=== PATIENT | male | born 1985 | race Caucasian/White ===

== ENCOUNTER 2016-12-12 15:24 | Emergency (ER) | payer OTHER, MEDICAID ==
[~2016-12-12] VITALS: Ht 170.2 cm; Wt 76.0 kg
[2016-12-12 16:15] VITALS: BP 128/84
== END 2016-12-12 18:33 | disposition left against medical advice (07) ==
LOC: ER 18:14
DX: R51 Headache (principal); R42 Dizziness and giddiness; H53.8 Other visual disturbances; Z53.21 Procedure and treatment not carried out due to patient leaving prior to being seen by health care provider

== ENCOUNTER 2018-03-07 03:08 | Emergency (ER) | payer MEDICAID, OTHER ==
[~2018-03-07] VITALS: Ht 165.1 cm; Wt 66.8 kg
[2018-03-07 03:35] VITALS: BP 118/77
== END 2018-03-07 04:05 | disposition left against medical advice (07) ==
LOC: ER 03:08
DX: R10.9 Unspecified abdominal pain (principal); Z53.21 Procedure and treatment not carried out due to patient leaving prior to being seen by health care provider

== ENCOUNTER 2021-03-17 16:51 | Emergency (ER) | payer MEDICAID ==
[~2021-03-17] VITALS: Ht 162.6 cm; Wt 63.0 kg
[~2021-03-17 16:51] MED LIST: ACET-2708 MT
[2021-03-17 17:05] VITALS: BP 139/88
== END 2021-03-17 18:55 | disposition left against medical advice (07) ==
LOC: ER 16:51
DX: Z53.21 Procedure and treatment not carried out due to patient leaving prior to being seen by health care provider (principal)

== ENCOUNTER 2021-03-21 20:28 | Emergency (ER) | payer MEDICAID | END 2021-03-21 22:59 | disposition left against medical advice (07) | LOC: ER 22:54 | DX: Z53.21 Procedure and treatment not carried out due to patient leaving prior to being seen by health care provider (principal) ==

== ENCOUNTER 2021-03-21 23:15 | Emergency (ER) | payer MEDICAID ==
[~2021-03-21] VITALS: Ht 167.6 cm; Wt 59.0 kg
[2021-03-22] MEDS ORDERED: IBUPROFEN 600MG TABLET PO ONE (01:15)
[2021-03-22 01:40] VITALS: BP 135/86
[2021-03-22 01:52] LABS: CLARITY URINE CLEAR (CLEAR); COLOR URINE YELLOW (YELLOW); KETONES URINE NEGATIVE (NEGATIVE); LEUKOCYTE ESTERASE URINE NEGATIVE (NEGATIVE); NITRITE URINE NEGATIVE (NEGATIVE); OCCULT BLOOD URINE NEGATIVE (NEGATIVE); PROTEIN URINE NEGATIVE (NEGATIVE); SPECIFIC GRAVITY URINE 1.029 (1.005-1.030)
== END 2021-03-22 03:02 | disposition home or self-care (01) ==
LOC: ER 23:15
DX: R30.0 Dysuria (principal); K62.89 Other specified diseases of anus and rectum
CPT/HCPCS: 81003; 99283

== ENCOUNTER 2021-04-10 12:24 | Emergency (ER) | payer MEDICAID ==
[~2021-04-10] VITALS: Ht 165.1 cm; Wt 65.0 kg
[2021-04-10 12:48] VITALS: BP 133/82
== END 2021-04-10 15:57 | disposition left against medical advice (07) ==
LOC: ER 12:24
DX: K59.00 Constipation, unspecified (principal); Z53.21 Procedure and treatment not carried out due to patient leaving prior to being seen by health care provider

== ENCOUNTER 2021-05-08 12:21 | Emergency (ER) | payer SELFPAY ==
[~2021-05-08] VITALS: Ht 165.1 cm; Wt 68.0 kg
[2021-05-08 14:36] LABS: BASOPHILS % 0.2 % (0.0-2.0); EOSINOPHILS % 0.4 % (0.0-5.0); HEMATOCRIT. 44.9 % (42.0-52.0); HEMOGLOBIN. 15.7 g/dL (14.0-18.0); LYMPHOCYTES % 22.7 % (20.0-50.0); MEAN CORPUSCULAR HEMOGLOBIN 30.9 pg (28.0-32.0); MEAN CORPUSCULAR VOLUME 88.4 fL (80.0-94.0); MEAN PLATELET VOLUME 8.4 fl (7.4-10.4); MONOCYTES % 5.5 % (2.0-8.0); NEUTROPHILS % 71.2 % (40.0-76.0); PLATELET 234 x1000/uL (130-400); RED BLOOD CELL COUNT 5.07 mill/uL (4.7-6.1); RED CELL DISTRIBUTION WIDTH 13.5 % (11.6-14.6)
[2021-05-08 14:37] LABS: CLARITY URINE CLEAR (CLEAR); COLOR URINE YELLOW (YELLOW); KETONES URINE NEGATIVE (NEGATIVE); LEUKOCYTE ESTERASE URINE NEGATIVE (NEGATIVE); NITRITE URINE NEGATIVE (NEGATIVE); OCCULT BLOOD URINE NEGATIVE (NEGATIVE); PH URINE 6.5 (4.5-8.0); PROTEIN URINE NEGATIVE (NEGATIVE); SPECIFIC GRAVITY URINE 1.029 (1.005-1.030)
[2021-05-08 15:30] VITALS: BP 131/86
[2021-05-08 16:01] LABS: CHLORIDE 109 mEq/L (98-107)
== END 2021-05-08 16:37 | disposition left against medical advice (07) ==
LOC: ER 12:21
DX: R10.30 Lower abdominal pain, unspecified (principal); K59.00 Constipation, unspecified
CPT/HCPCS: 36415; 80053; 81003; 85025; 99283

== ENCOUNTER 2021-06-13 00:12 | Emergency (ER) | payer SELFPAY ==
[~2021-06-13] VITALS: Ht 165.1 cm; Wt 69.0 kg
[2021-06-13 00:24] VITALS: BP 128/93
== END 2021-06-13 01:23 | disposition left against medical advice (07) ==
LOC: ER 00:12
DX: Z53.21 Procedure and treatment not carried out due to patient leaving prior to being seen by health care provider (principal)

== ENCOUNTER 2022-05-28 15:28 | Emergency (ER) | payer MEDICAID ==
[~2022-05-28] VITALS: Ht 162.6 cm; Wt 50.0 kg
[2022-05-28] MEDS ORDERED: KETOROLAC 60MG/2ML VIAL IM ONE (19:15)
[2022-05-28] MEDS ORDERED: LIDOCAINE HCL 1% 20ML VIAL (Pyxis) INJ INFIL ONE (20:45)
[2022-05-28] MEDS ORDERED: LIDOCAINE HCL 1% 10 MG/ML 10ML VIAL INJ NR (20:45)
[2022-05-28 21:43] VITALS: BP 122/81
== END 2022-05-29 00:05 | disposition left against medical advice (07) ==
LOC: ER 15:28
DX: S61.441A Puncture wound with foreign body of right hand, initial encounter (principal); W45.0XXA Nail entering through skin, initial encounter; W29.4XXA Contact with nail gun, initial encounter; Y93.89 Activity, other specified; Y92.018 Other place in single-family (private) house as the place of occurrence of the external cause
CPT/HCPCS: 29125; 73130; 96372; 99284; J1885; J3490; Z7610

== ENCOUNTER 2022-06-11 23:53 | Emergency (ER) | payer MEDICAID | END 2022-06-12 00:50 | disposition left against medical advice (07) | LOC: ER 06-12 00:05 | DX: Z53.21 Procedure and treatment not carried out due to patient leaving prior to being seen by health care provider (principal) ==

== ENCOUNTER 2022-06-13 13:31 | Emergency (ER) | payer MEDICAID | END 2022-06-13 15:05 | disposition left against medical advice (07) | LOC: ER 13:40 | DX: Z53.21 Procedure and treatment not carried out due to patient leaving prior to being seen by health care provider (principal) ==

== ENCOUNTER 2022-09-10 04:39 | Emergency (ER) | payer SELFPAY ==
[~2022-09-10] VITALS: Ht 160 cm; Wt 71.2 kg
[~2022-09-10 04:39] MED LIST changes: +CEPH500C2 MT; +DOXY100C5 MT; +IBUP-2029 MT
[2022-09-10] MEDS ORDERED: IBUPROFEN 400MG TABLET PO ONE (07:00)
[2022-09-10 07:43] VITALS: BP 124/71
== END 2022-09-10 08:14 | disposition home or self-care (01) ==
LOC: ER 04:39
DX: M79.641 Pain in right hand (principal)
CPT/HCPCS: 29125; 73120; 99283

== ENCOUNTER 2022-09-14 22:29 | Emergency (ER) | payer SELFPAY ==
[~2022-09-14] VITALS: Ht 160 cm; Wt 67.4 kg
[2022-09-14 23:42] VITALS: BP 124/83
[2022-09-15] MEDS ORDERED: KETOROLAC 60MG/2ML VIAL IM STA (00:08)
[2022-09-15] MEDS ORDERED: NAPR-681 PO (01:32)
== END 2022-09-15 01:50 | disposition home or self-care (01) ==
LOC: ER 22:36
DX: M54.50 Low back pain, unspecified (principal)
CPT/HCPCS: 72100; 96372; 99283; J1885